=== PATIENT | male | born 1970 | race Caucasian/White ===

== ENCOUNTER 2019-02-15 16:35 | Inpatient (IN) | payer MEDICAID ==
[~2019-02-15] VITALS: Ht 185.4 cm; Wt 73.0 kg
[2019-02-15] MEDS ORDERED: PNEUMOCOCCAL VACCINE POLYVALENT 0.5 ML VIAL [PPSV23] IM ONE (17:45)
[2019-02-15] MEDS ORDERED: ZOLPIDEM TARTRATE 10 MG TABLET PO PRN (17:45)
[2019-02-15 21:00] VITALS: BP 110/70
[2019-02-16 05:19] VITALS: BP 112/68
[2019-02-16] MEDS ORDERED: ACETAMINOPHEN 325 MG TABLET PO PRN (06:45)
[2019-02-16] MEDS ORDERED: IBUPROFEN 600 MG TABLET PO PRN (06:45)
[2019-02-16 07:38] LABS: BASOPHILS % (AUTO) 0.7 % (0.0-2.0); EOSINOPHILS % (AUTO) 3.7 % (1.0-6.0); HEMATOCRIT 41.2 % (41-53); HEMOGLOBIN 13.8 g/dL (13.5-17.5); LYMPHOCYTES # (AUTO) 1.4 K/uL (1.0-4.8); LYMPHOCYTES % (AUTO) 30.3 % (22.0-44.0); MEAN CORPUSCULAR HEMOGLOBIN 30.4 pg (26.0-34.0); MEAN CORPUSCULAR HGB CONC 33.5 G/dL (31.0-37.0); MEAN CORPUSCULAR VOLUME 91 fL (80-100); MONOCYTES # (AUTO) 0.7 K/uL (0.1-1.0); NEUTROPHILS # (AUTO) 2.3 K/uL (1.8-7.7); NEUTROPHILS % (AUTO) 49.3 % (40.0-70.0); PLATELET COUNT (AUTO) 227 K/uL (150-450); RED BLOOD CELL COUNT(AUTO) 4.54 MIL/uL (4.50-5.90); RED CELL DISTRIBUTION WIDTH 14.5 % (11.5-14.5)
[2019-02-16 07:49] LABS: HEMOGLOBIN A1C 5.4 % (4.5-6.2)
[2019-02-16 08:06] LABS: ALANINE AMINOTRANSFERASE 20 U/L (12-78); ALBUMIN 3.3 g/dL (3.4-5.0); ALKALINE PHOSPHATASE 99 U/L (46-116); ANION GAP 8 mmol/L (8-16); ASPARTATE AMINOTRANSFERASE 18 U/L (15-37); BILIRUBIN,TOTAL 0.3 mg/dL (0.1-1.0); CALCIUM, TOTAL 8.7 mg/dL (8.8-10.5); CARBON DIOXIDE 30 mmol/L (22-29); CHLORIDE 99 mmol/L (98-107); CHOLESTEROL 138 mg/dL (131-200); CREATININE 0.86 mg/dL (0.60-1.30); FREE T4 (FREE THYROXINE) 1.03 ng/dL (0.76-1.46); GLOMERULAR FILTR. RATE CALC > 60 mL/min (>60); GLUCOSE,RANDOM 87 mg/dL (70-110); HDL CHOLESTEROL 46 mg/dL (40-60); LDL CHOL (CALC.) 73 mg/dL (0-130); POTASSIUM 4.2 mmol/L (3.5-5.1); SODIUM SERUM 137 mmol/L (136-145); TOTAL PROTEIN, SERUM 6.8 g/dL (6.4-8.2); TRIGLYCERIDES 95 mg/dL (15-150); UREA NITROGEN, BLOOD 15 mg/dL (7-18)
[2019-02-16 08:22] VITALS: BP 124/61
[2019-02-16] MEDS: NICOTINE 14 MG/24 HOUR PATCH TD SCH (09:09)
[2019-02-16] MEDS ORDERED: ALBUTEROL SULFATE HFA 90 MCG/PUFF 8 GM INHALER IH PRN (11:30)
[2019-02-16] MEDS: BuPROPion HCL XL 150 MG ER TABLET PO SCH (12:59)
[2019-02-16] MEDS: LORazepam 2 MG TABLET PO PRN ×2 (13:32→17:35)
[2019-02-16 16:00] VITALS: BP 120/71
[2019-02-16] MEDS: BUDESONIDE/FORMOTEROL FUMARATE 160-4.5 MCG/PUFF 6.9 GM INHALER IH SCH (17:01)
[2019-02-16] MEDS: HALOPERIDOL 5 MG TABLET PO PRN (17:05)
[2019-02-16] MEDS ORDERED: QUEtiapine FUMARATE 200 MG TABLET PO SCH (21:00)
[2019-02-17 06:24] VITALS: BP 115/74
[2019-02-17 08:08] VITALS: BP 122/70
[2019-02-17] MEDS: LORazepam 2 MG TABLET PO PRN ×2 (08:55→21:40)
[2019-02-17] MEDS: BUDESONIDE/FORMOTEROL FUMARATE 160-4.5 MCG/PUFF 6.9 GM INHALER IH SCH ×2 (08:55→16:35)
[2019-02-17] MEDS: BuPROPion HCL XL 150 MG ER TABLET PO SCH (08:55)
[2019-02-17] MEDS: HALOPERIDOL 5 MG TABLET PO PRN (08:55)
[2019-02-17] MEDS: NICOTINE 14 MG/24 HOUR PATCH TD SCH (08:56)
[2019-02-17 16:00] VITALS: BP 94/68
[2019-02-17] MEDS ORDERED: QUEtiapine FUMARATE 200 MG ER TABLET PO SCH (21:00)
[2019-02-18 06:51] VITALS: BP 86/55
[2019-02-18 08:24] VITALS: BP 132/60
[2019-02-18] MEDS ORDERED: BuPROPion HCL XL 150 MG ER TABLET PO SCH (09:00)
[2019-02-18] MEDS: NICOTINE 14 MG/24 HOUR PATCH TD SCH (09:06)
[2019-02-18] MEDS: BUDESONIDE/FORMOTEROL FUMARATE 160-4.5 MCG/PUFF 6.9 GM INHALER IH SCH (09:06)
[2019-02-18] MEDS ORDERED: QUET200T5 PO (11:45)
[2019-02-18] MEDS ORDERED: BUPR-93 PO (11:45)
== END 2019-02-18 13:30 | disposition home or self-care (01) | DRG 751 ==
LOC: B3A 16:35
PROVIDERS: ADMIT Psychiatry & Neurology Psychiatry; ATTEND Psychiatry & Neurology Psychiatry
DX: F33.3 Major depressive disorder, recurrent, severe with psychotic symptoms (principal); F15.20 Other stimulant dependence, uncomplicated; R45.851 Suicidal ideations; J44.9 Chronic obstructive pulmonary disease, unspecified; F41.9 Anxiety disorder, unspecified; F17.200 Nicotine dependence, unspecified, uncomplicated; F12.90 Cannabis use, unspecified, uncomplicated; G89.29 Other chronic pain; R45.87 Impulsiveness; Z59.0 Homelessness; Z80.0 Family history of malignant neoplasm of digestive organs; Z91.19 Patient's noncompliance with other medical treatment and regimen; Z91.5 Personal history of self-harm; Z88.8 Allergy status to other drugs, medicaments and biological substances
CPT/HCPCS: 83036; 84439; 84443; 87081

== ENCOUNTER 2019-03-05 15:12 | Inpatient (IN) | payer MEDICAID ==
[~2019-03-05] VITALS: Ht 185.4 cm; Wt 73.3 kg
[~2019-03-05 15:12] MED LIST: BUPR-93 PO; QUET200T5 PO
[2019-03-05 17:13] VITALS: BP 109/66
[2019-03-05] MEDS ORDERED: ZOLPIDEM TARTRATE 10 MG TABLET PO PRN (17:30)
[2019-03-05] MEDS ORDERED: HALOPERIDOL 5 MG TABLET PO PRN (17:30)
[2019-03-05] MEDS ORDERED: LORazepam 2 MG TABLET PO PRN (17:30)
[2019-03-05 18:06] VITALS: BP 118/81
[2019-03-05] MEDS ORDERED: ALBUTEROL SULFATE HFA 90 MCG/PUFF 8 GM INHALER IH PRN (19:45)
[2019-03-05] MEDS ORDERED: ACETAMINOPHEN 325 MG TABLET PO PRN (19:45)
[2019-03-05] MEDS ORDERED: IBUPROFEN 600 MG TABLET PO PRN (19:45)
[2019-03-05] MEDS: BuPROPion HCL XL 150 MG ER TABLET PO SCH (20:51)
[2019-03-05] MEDS: QUEtiapine FUMARATE 200 MG ER TABLET PO SCH (20:51)
[2019-03-06 01:32] VITALS: BP 100/62
[2019-03-06 08:08] LABS: BASOPHILS % (AUTO) 0.9 % (0.0-2.0); EOSINOPHILS % (AUTO) 7.2 % (1.0-6.0); HEMATOCRIT 41.2 % (41-53); HEMOGLOBIN 13.4 g/dL (13.5-17.5); LYMPHOCYTES # (AUTO) 3.2 K/uL (1.0-4.8); LYMPHOCYTES % (AUTO) 55.5 % (22.0-44.0); MEAN CORPUSCULAR HEMOGLOBIN 30.1 pg (26.0-34.0); MEAN CORPUSCULAR HGB CONC 32.6 G/dL (31.0-37.0); MEAN CORPUSCULAR VOLUME 92 fL (80-100); MONOCYTES # (AUTO) 0.3 K/uL (0.1-1.0); MONOCYTES % (AUTO) 5.7 % (2.0-9.0); NEUTROPHILS # (AUTO) 1.8 K/uL (1.8-7.7); NEUTROPHILS % (AUTO) 30.7 % (40.0-70.0); PLATELET COUNT (AUTO) 246 K/uL (150-450); RED BLOOD CELL COUNT(AUTO) 4.46 MIL/uL (4.50-5.90); RED CELL DISTRIBUTION WIDTH 13.6 % (11.5-14.5)
[2019-03-06 08:33] LABS: HEMOGLOBIN A1C 5.4 % (4.5-6.2)
[2019-03-06 08:54] VITALS: BP 103/61
[2019-03-06 08:56] LABS: ALANINE AMINOTRANSFERASE 21 U/L (12-78); ALBUMIN 3.1 g/dL (3.4-5.0); ALKALINE PHOSPHATASE 62 U/L (46-116); ANION GAP 6 mmol/L (8-16); ASPARTATE AMINOTRANSFERASE 16 U/L (15-37); BILIRUBIN,TOTAL 0.2 mg/dL (0.1-1.0); CALCIUM, TOTAL 8.6 mg/dL (8.8-10.5); CARBON DIOXIDE 30 mmol/L (22-29); CHLORIDE 108 mmol/L (98-107); CHOL/HDL RATIO 2.9 (4.2-7.3); CHOLESTEROL 120 mg/dL (131-200); FREE T4 (FREE THYROXINE) 0.64 ng/dL (0.76-1.46); GLOMERULAR FILTR. RATE CALC > 60 mL/min (>60); GLUCOSE,RANDOM 89 mg/dL (70-110); HDL CHOLESTEROL 42 mg/dL (40-60); LDL CHOL (CALC.) 53 mg/dL (0-130); POTASSIUM 3.8 mmol/L (3.5-5.1); SODIUM SERUM 144 mmol/L (136-145); THYROID STIMULATING HORMONE 1.45 uIU/mL (0.36-3.74); TRIGLYCERIDES 124 mg/dL (15-150); UREA NITROGEN, BLOOD 19 mg/dL (7-18)
[2019-03-06] MEDS: BuPROPion HCL XL 150 MG ER TABLET PO SCH (09:02)
[2019-03-06] MEDS: NICOTINE 14 MG/24 HOUR PATCH TD SCH (09:03)
[2019-03-06] MEDS: BUDESONIDE/FORMOTEROL FUMARATE 160-4.5 MCG/PUFF 6.9 GM INHALER IH SCH ×2 (09:03→17:39)
[2019-03-06 16:07] VITALS: BP 105/74
[2019-03-06] MEDS: QUEtiapine FUMARATE 200 MG ER TABLET PO SCH (20:50)
[2019-03-07 03:24] VITALS: BP 118/69
[2019-03-07] MEDS: BuPROPion HCL XL 150 MG ER TABLET PO SCH (08:13)
[2019-03-07] MEDS: NICOTINE 14 MG/24 HOUR PATCH TD SCH (08:13)
[2019-03-07] MEDS: BUDESONIDE/FORMOTEROL FUMARATE 160-4.5 MCG/PUFF 6.9 GM INHALER IH SCH ×2 (08:19→17:10)
[2019-03-07 08:24] VITALS: BP 121/68
[2019-03-07] MEDS: SERTRALINE HCL 50 MG TABLET PO SCH (12:26)
[2019-03-07 16:02] VITALS: BP 119/67
[2019-03-07] MEDS: QUEtiapine FUMARATE 200 MG ER TABLET PO SCH (20:38)
[2019-03-08 01:07] VITALS: BP 102/69
[2019-03-08 03:00] VITALS: BP 116/72
[2019-03-08 08:03] VITALS: BP 121/73
[2019-03-08] MEDS: SERTRALINE HCL 50 MG TABLET PO SCH (08:17)
[2019-03-08] MEDS: BuPROPion HCL XL 150 MG ER TABLET PO SCH (08:17)
[2019-03-08] MEDS: NICOTINE 14 MG/24 HOUR PATCH TD SCH (08:18)
[2019-03-08] MEDS: BUDESONIDE/FORMOTEROL FUMARATE 160-4.5 MCG/PUFF 6.9 GM INHALER IH SCH ×2 (08:19→16:43)
[2019-03-08 16:05] VITALS: BP 107/68
[2019-03-08] MEDS: QUEtiapine FUMARATE 200 MG ER TABLET PO SCH (20:26)
[2019-03-09 06:43] VITALS: BP 110/68
[2019-03-09 08:22] VITALS: BP 105/64
[2019-03-09] MEDS: BuPROPion HCL XL 150 MG ER TABLET PO SCH (08:35)
[2019-03-09] MEDS: SERTRALINE HCL 50 MG TABLET PO SCH (08:35)
[2019-03-09] MEDS: NICOTINE 14 MG/24 HOUR PATCH TD SCH (08:35)
[2019-03-09] MEDS: BUDESONIDE/FORMOTEROL FUMARATE 160-4.5 MCG/PUFF 6.9 GM INHALER IH SCH ×2 (08:36→16:50)
[2019-03-09 16:29] VITALS: BP 108/70
[2019-03-09] MEDS: QUEtiapine FUMARATE 200 MG ER TABLET PO SCH (20:43)
[2019-03-10 00:32] VITALS: BP 100/66
[2019-03-10 08:13] VITALS: BP 129/82
[2019-03-10] MEDS: SERTRALINE HCL 50 MG TABLET PO SCH (08:33)
[2019-03-10] MEDS: BuPROPion HCL XL 150 MG ER TABLET PO SCH (08:33)
[2019-03-10] MEDS: NICOTINE 14 MG/24 HOUR PATCH TD SCH (08:33)
[2019-03-10] MEDS: BUDESONIDE/FORMOTEROL FUMARATE 160-4.5 MCG/PUFF 6.9 GM INHALER IH SCH ×2 (08:35→16:30)
[2019-03-10 16:04] VITALS: BP 117/79
[2019-03-10] MEDS: QUEtiapine FUMARATE 200 MG ER TABLET PO SCH (20:37)
[2019-03-10] MEDS ORDERED: SERT50TA12 PO (22:24)
[2019-03-10] MEDS ORDERED: BUDE10.2 IH (22:24)
[2019-03-11 06:16] VITALS: BP 112/68
[2019-03-11] MEDS: SERTRALINE HCL 50 MG TABLET PO SCH (08:08)
[2019-03-11] MEDS: BuPROPion HCL XL 150 MG ER TABLET PO SCH (08:09)
[2019-03-11] MEDS: BUDESONIDE/FORMOTEROL FUMARATE 160-4.5 MCG/PUFF 6.9 GM INHALER IH SCH (08:11)
[2019-03-11] MEDS: NICOTINE 14 MG/24 HOUR PATCH TD SCH (08:13)
[2019-03-11 08:24] VITALS: BP 100/61
== END 2019-03-11 10:05 | DRG 751 ==
LOC: B2S 17:36
PROVIDERS: ADMIT Psychiatry & Neurology Psychiatry; ATTEND Psychiatry & Neurology Psychiatry
DX: F33.2 Major depressive disorder, recurrent severe without psychotic features (principal); R45.851 Suicidal ideations; Z91.19 Patient's noncompliance with other medical treatment and regimen; F41.9 Anxiety disorder, unspecified; Z59.0 Homelessness; J44.9 Chronic obstructive pulmonary disease, unspecified; Z80.0 Family history of malignant neoplasm of digestive organs; Z91.5 Personal history of self-harm; E03.9 Hypothyroidism, unspecified; F12.10 Cannabis abuse, uncomplicated; F15.10 Other stimulant abuse, uncomplicated; F17.200 Nicotine dependence, unspecified, uncomplicated
CPT/HCPCS: 80074; 83036; 84436; 84439; 84443